=== PATIENT | male | born 1995 | race Caucasian/White ===

== ENCOUNTER 2022-01-27 10:45 | Emergency (ER) | payer OTHER ==
--- OUTSIDE RECORDS SUMMARY | 2022-01-27 10:49 | XMS REPORT | Continuity of Care Document ---
:1995 Author Organization [facility] t Address [address] [place] [address] Care Team Providers Name Role Phone KOSCIUK Attending Clinician Unavailable KOSCIUK Admitting Clinician Unavailable Problems Condition Condition Condition Status Onset Resolution Last Treating Co mments Source Name Details Category Date Date Treatment Clinician Date Chest pain Chest pain Problem [facility] (LUF/LI V/SA) Pain in Pain in Problem Active [facility] (LUF/LI V/SA) Allergies, Adverse Reactions, Alerts Allergy Allergy Status Severity Reaction(s) Onset Inactive Treating Comm ents Source Name Type Date Date Clinician No Known DA Active Unknown [facility] - Allergie 00:00: Memoria s 00 l (LUF/LI V/SA) Medications This patient has no known medications. Vital Signs Vital Name Observation Time Observation Value Comments Source Weight 2017-12-24 19:52:00 69.7 KG Respiratory Rate 2017-12-24 19:58:00 18 /min [facility] (LUF/CM/SA) O2% BldC Oximetry 2017-12-24 19:58:00 99 % [facility] BP Systolic 2017-12-24 19:58:00 129 mm[Hg] [facility] (LUF/CM/SA) BP Diastolic 2017-12-24 19:58:00 72 mm[Hg] [facility] Body Temperature 2017-12-24 19:58:[address] [facility] Weight Measured 2017-12-24 19:52:00 153.66 lbs [facility] ([facility]) Procedures This patient has no known procedures. Encounters Start End Encounter Admission Attending Care Care Encounter Source Date/Time Date/Time Type Type Clinicians Facility Department ID 2017-12-24 2017-12-24 RIGHT 1 MAXX [facility] [id number] 19:41:00 23:46:00 TESTICULAR SHELLY [place] Jason es - PAIN [place], [facility] [address] [facility] ([address], V/SA) [place] [id number] Results Test Description Test Time Test Comments Results Result Sour e Comments US SCROTUM 2017-12-25 ER 6 Procedure: US SCROTUM (TESTES) 07:24:53 (TESTES)CLINICAL HISTORY: Right-sided scrotal pain.Order Date: 12/24/2017 9:16 PMOrdering clinician: SHELLY LILLYCOMPARISON: None available.TECHNIQUE: Ultrasound images of the scrotum was performed with grimaldo-scale andcolor doppler.FINDINGS:The right testis is normal in size and morphology.The left testis is normal in size and morphology.There is no intratesticular abnormality. Testicular vascularity is symmetricand within normal limits.The epididymis is normal in appearance bilaterally.Small left-sided varicocele. No hydroceles.IMPRESSION :Small left-sided varicocele. Otherwise, unremarkable testicular ultrasound.This final report was electronically signed by Dr Castro Young MD 12/25/20177:18 AMDictated By: CASTRO YOUNGDate: 12/25/2017 07:24
[2022-01-27] MEDS ORDERED: IBUPROFEN 400 MG TAB ONE (11:14)
--- NOTE | 2022-01-27 11:52 | RAD REPORT ---
EXAM DESCRIPTION: RAD - Hand Right 3 View - 01/27/2022 11:40 am CLINICAL HISTORY: hand injury COMPARISON: No comparisons FINDINGS/IMPRESSION: Slightly angulated and minimally displaced fracture at the proximal fifth metac arpal. The fracture line extends to the articular surface. No other fractures are identified . Ulnar minus variance.
--- NOTE | 2022-01-27 13:07 | ER ---
Nurse's Notes [facility] Name: Damaso Sarabia Age: 26 yrs Sex: Male : 1995 Arrival Date: 01/27/2022 Time: 10:48 Bed 9 Private MD: Diagnosis: Fracture of the base of the metacarpal, right, initial visit, unspecified, closed, acute Presentation: 01/27 10:55 Chief complaint: Patient states: "Patient reports he was working on his truck the ag7 ratchet slip he punch the block one day ago". Coronavirus screen: Vaccine status: Patient reports being unvaccinated. Ebola Screen: No symptoms or risks identified at this time. Initial Sepsis Screen: Does the patient meet any 2 criteria? No. Patient's initial sepsis screen is negative. Does the patient have a suspected source of infection? No. Patient's initial sepsis screen is negative. Risk Assessment: Do you want to hurt yourself or someone else? Patient reports no desire to harm self or others. Onset of symptoms was January 26, 2022. 10:55 Method Of Arrival: Ambulatory [facility] 10:55 Acuity: JAMES 3 ag7 Triage Assessment: 11:07 Injury Description: Deformity sustained to right hand is SWOLLEN. ke1 Historical: - Allergies: 10:59 No Known Allergies; ag7 - Home Meds: 10:59 None [Active]; ag7 - PMHx: 10:59 None; ag7 - Immunization history:: Adult Immunizations up to date. - Social history:: Smoking status: Patient reports the use of cigarette tobacco products, smokes one-half pack cigarettes per day. Screenin:07 Abuse screen: Denies threats or abuse. Nutritional screening: No deficits noted. ke1 Tuberculosis screening: No symptoms or risk factors identified. Fall Risk No fall in past 12 months (0 pts). No secondary diagnosis (0 pts). No IV (0 pts). Ambulatory Aid- None/Bed Rest/Nurse Assist (0 pts). Gait- Normal/Bed Rest/Wheelchair (0 pts) Mental Status- Oriented to own ability (0 pts). Total Mehta Fall Scale indicates No Risk (0-24 pts). Assessment: 11:02 General: Appears in no apparent distress. Behavior is cooperative. Pain: Complains of ke1 pain in right hand Pain does not radiate. Pain currently is 2 out of 10 on a pain scale. at worst was 10 out of 10 on a pain scale. level that patient reports is acceptable is 2 out of 10 on a pain scale. Quality of pain is described as shooting, Aggravated by repositioning, Goal of pain control is to be pain free. Neuro: Level of Consciousness is awake, alert, Oriented to person, place, time, situation. Cardiovascular: Heart tones S1 S2 Capillary refill < 3 seconds Patient's skin is warm and dry. Respiratory: Airway is patent Breath sounds are clear bilaterally. GI: Abdomen is flat. : No deficits noted. Derm: No deficits noted. Musculoskeletal: Range of motion: limited in right wrist. 13:15 Reassessment: Patient appears in no apparent distress at this time. No changes from jd3 previously documented assessment. Patient and/or family updated on plan of care and expected duration. Pain level reassessed. Patient is alert, oriented x 3, equal unlabored respirations, skin warm/dry/pink. Vital Signs: 10:55 BP 120 / 69; Pulse 80; Resp 20; Temp 98.5; Pulse Ox 100% on R/A; Weight 68.04 kg; ag7 Height 6 ft. (182.88 cm); Pain 10/10; 13:15 Pulse 82; Resp 19 S; Pulse Ox 100% on R/A; jd3 10:55 Body Mass Index 20.34 (68.04 kg, 182.88 cm) ag7 ED Course: 10:48 Patient arrived in ED. jj6 10:50 David Henderson PA is PHCP. [facility] 10:50 Chandra Phillip MD is Attending Physician. [facility] 10:51 Syed Davey, YAMINI is Primary Nurse. ke1 10:59 Triage completed. ag7 11:00 Arm band placed on left wrist. ag7 11:08 Patient has correct armband on for positive identification. Bed in low position. Call ke1 light in reach. 11:40 Hand Right 3 View XRAY In Process Unspecified. EDMS 12:50 Orthoglass splint: Ulnar gutter/Boxer splint applied on right forearm. capillary refill dh3 <3 seconds, viewed by CARLOS Aiken. 13:05 Minh Brooks MD is Referral Physician. [facility] 13:05 Juan Carlos Childs MD is Referral Physician. [facility] 13:15 No provider procedures requiring assistance completed. Patient did not have IV access jd3 during this emergency room visit. Administered Medications: 11:13 Drug: Ibuprofen 800 mg Route: PO; ke1 12:00 Follow up: Response: No adverse reaction jd3 Outcome: 13:07 Discharge ordered by . jmm 13:15 Discharged to home ambulatory, with family. jd3 13:15 Condition: stable 13:15 Discharge instructions given to patient, Instructed on discharge instructions, follow up and referral plans. medication usage, Demonstrated understanding of instructions, follow-up care, medications, Prescriptions given X 1. 13:16 Patient left the ED. jd3 Signatures: Dispatcher [employer] EDMS David Henderson PA PA [facility] Enedelia Bolton 3 Kishore Cartwright RN RN jd3 Cheri Alexis jj6 Syed Davey RN RN ke1 Marguerite Carr RN RN ag7
--- NOTE | 2022-01-27 13:07 | EDPHYS ---
Physician Documentation [facility] Name: Damaso Sarabia Age: 26 yrs Sex: Male : 1995 Arrival Date: 01/27/2022 Time: 10:48 Bed 9 Private MD: ED Physician Chandra Phillip HPI: 01/27 11:08 This 26 yrs old Male presents to ER via Ambulatory with complaints of Hand Injury, Hand jmm Pain, Hand Swelling. 11:08 The patient or guardian reports injury, pain. Onset: The symptoms/episode jmm began/occurred acutely, 1 day(s) ago. Modifying factors: The symptoms are alleviated by nothing, the symptoms are aggravated by nothing. This is a 26-year-old male with no known chronic medical conditions of presents emergency department with complaints of right hand pain and swelling after injuring himself while working on a motor. Patient states that he was using a socket and slipped hitting an engine block. Unsure on tetanus immunization.. Historical: - Allergies: 10:59 No Known Allergies; ag7 - Home Meds: 10:59 None [Active]; ag7 - PMHx: 10:59 None; ag7 - Immunization history:: Adult Immunizations up to date. - Social history:: Smoking status: Patient reports the use of cigarette tobacco products, smokes one-half pack cigarettes per day. ROS: 11:08 Constitutional: Negative for fever, chills, and weight loss, Cardiovascular: Negative jmm for chest pain, palpitations, and edema, Respiratory: Negative for shortness of breath, cough, wheezing, and pleuritic chest pain. 11:08 MS/extremity: Positive for injury or acute deformity, pain. 11:08 All other systems are negative. Exam: 11:08 Constitutional: This is a well developed, well nourished patient who is awake, alert, jmm and in no acute distress. Head/Face: atraumatic. Eyes: EOMI, no conjunctival erythema appreciated ENT: Moist Mucus Membranes Neck: Trachea midline, Supple Chest/axilla: Normal chest wall appearance and motion. Cardiovascular: Regular rate and rhythm. No edema appreciated Respiratory: Normal respirations, no respiratory distress appreciated Abdomen/GI: Non distended, soft Back: Normal ROM 11:08 Musculoskeletal/extremity: Full range of motion appreciated to the right wrist, fourth and fifth metacarpophalangeal joints, less than 2-second distal capillary refill, swelling noted to the base of the fifth metacarpal region. No open wounds at the base.. 11:08 Skin: abrasion noted to the right hand. 11:08 Neuro: Orientation: is normal, Mentation: is normal, Memory: is normal. 11:08 Psych: Behavior/mood is pleasant, cooperative. Vital Signs: 10:55 BP 120 / 69; Pulse 80; Resp 20; Temp 98.5; Pulse Ox 100% on R/A; Weight 68.04 kg; ag7 Height 6 ft. (182.88 cm); Pain 10/10; 13:15 Pulse 82; Resp 19 S; Pulse Ox 100% on R/A; jd3 10:55 Body Mass Index 20.34 (68.04 kg, 182.88 cm) ag7 Procedures: 13:01 Splinting: Splint applied to right hand using applied by tech. Examined by me, post [facility] splint application: neurovascular intact, 2+ distal pulses palpable, brisk capillary refill noted, Patient tolerated well. MDM: 11:08 Patient medically screened. [facility] 13:01 Data reviewed: vital signs, nurses notes. Counseling: I had a detailed discussion with [facility] the patient and/or guardian regarding: the historical points, exam findings, and any diagnostic results supporting the discharge/admit diagnosis, radiology results, the need for outpatient follow up, to return to the emergency department if symptoms worsen or persist or if there are any questions or concerns that arise at home. ED course: Patient splinted. Advised to follow up with ortho for further evaluation Patient otherwise given strict return precautions. Patient understood and agrees with the plan of care. . 01/27 11:09 Order name: Hand Right 3 View XRAY; Complete Time: 12:20 [facility] 01/27 12:23 Order name: Ulnar Gutter splint; Complete Time: 12:52 [facility] Administered Medications: 11: Drug: Ibuprofen 800 mg Route: PO; ke1 12:00 Follow up: Response: No adverse reaction jd3 Disposition: 15:35 Co-signature as Attending Physician, hCandra Phillip MD I agree with the assessment and rn plan of care. Attestation: The patient's history, exam findings, diagnostics, and a summary of any interventions or procedures was reviewed in detail with David GONZALEZ. Disposition Summary: 01/27/22 13:07 Discharge Ordered Location: Home [facility] Condition: Stable [facility] Diagnosis - Fracture of the base of the metacarpal, right, initial visit, unspecified, closed, [facility] acute Followup: [facility] - With: Minh Brooks MD - When: 2 - 3 days - Reason: Recheck today's complaints, Continuance of care, Re-evaluation by your physician Followup: [facility] - With: Juan Carlos Childs MD - When: 2 - 3 days - Reason: Recheck today's complaints, Continuance of care, Re-evaluation by your physician Discharge Instructions: - Discharge Summary Sheet [facility] - Boxer's Fracture [facility] Forms: - Medication Reconciliation Form [facility] - Thank You Letter [facility] - Work release form [facility] - Antibiotic Education [facility] - Prescription Opioid Use [facility] Prescriptions: - Ultracet 37.5-325 mg Oral Tablet - take 1 tablet by ORAL route every 6 hours - for up to 5 days; do not exceed 8 jmm tablets per day.; 12 tablet; Refills: 0, Product Selection Permitted Signatures: Dispatcher [employer] EDMS David Henderson PA PA m Chandra Phillip MD MD rn Ebrottie, Kouassi RN RN ke1 Marguerite Carr RN RN ag7 Kishore Cartwright RN jd3
[2022-01-27 13:36] VITALS: BP 120/69; TEMP 98.5; O2SAT 100
== END 2022-01-27 13:16 | disposition home or self-care (01) ==
LOC: ER 10:45
PROC: 2W3CX1Z Immobilization of Right Lower Arm using Splint (ICD-10-PCS; principal; 2022-01-27)
DX: S62.316A Displaced fracture of base of fifth metacarpal bone, right hand, initial encounter for closed fracture (principal); W22.8XXA Striking against or struck by other objects, initial encounter; F17.210 Nicotine dependence, cigarettes, uncomplicated
CPT/HCPCS: 99284

== ENCOUNTER 2022-12-04 11:22 | Emergency (ER) | payer OTHER ==
--- OUTSIDE RECORDS SUMMARY | 2022-12-04 11:25 | XMS REPORT | Continuity of Care Document ---
:1995 Author Organization [facility] t Address [address] [place] [address] Care Team Providers Name Role Phone SHLELY LILLY Attending Clinician Unavailable SHELLY LILLY Admitting Clinician Unavailable Problems Condition Condition Condition Status Onset Resolution Last Treating Co mments Source Name Details Category Date Date Treatment Clinician Date Chest pain Chest pain Problem [facility] Memoria [facility] (LUF/LI V/SA) Pain in Pain in Problem Active [facility] 00:[facility]: Memoria 00 l (LUF/LI V/SA) Allergies, Adverse Reactions, Alerts Allergy Allergy Status Severity Reaction(s) Onset Inactive Treating Comm ents Source Name Type Date Date Clinician No Known DA Active Unknown [facility] Allergie 00:00: Memoria s 00 l (LUF/LI V/SA) Medications This patient has no known medications. Vital Signs Vital Name Observation Time Observation Value Comments Source Weight 2017-12-24 19:52:00 69.7 KG Body Temperature 2017-12-24 19:58:00 98.[address] [facility] (LUF/CM/SA) Respiratory Rate 2017-12-24 19:58:00 18 /min [facility] (LUF/CM/SA) O2% BldC Oximetry 2017-12-24 19:58:00 99 % [facility] (LUF/CM/SA) BP Systolic 2017-12-24 19:58:00 129 mm[Hg] [facility] (LUF/CM/SA) BP Diastolic 2017-12-24 19:58:00 72 mm[Hg] [facility] (LUF/CM/SA) Weight Measured 2017-12-24 19:52:00 153.66 lbs [facility] (LUF/CM/SA) Procedures This patient has no known procedures. Encounters Start End Encounter Admission Attending Care Care Encounter Source Date/Time Date/Time Type Type Clinicians Facility Department ID 2022-01-31 Outpatient [facility] [id number] Common 10:00:05 [facility] 2017-12-24 2017-12-24 RIGHT 1 MAXX [facility] [id number] [facility] 19:41:00 23:46:00 TESTICULAR SHELLY [place] Jason es [facility] [place] [address] [facility] ([address], V/SA) [facility] [place] [address] Results Test Description Test Time Test Comments Results Result Sourc e Comments US SCROTUM 2017-12-25 ER 6 Procedure: US [facility] (TESTES) 07:24:53 SCROTUM [place] (TESTES)CLINICAL HISTORY: Right-sided scrotal pain.Order Date: 12/24/2017 9:16 PMOrdering clinician: SHELLY LILLYCOMPARISON: None available.TECHNIQUE: Ultrasound images of the scrotum was performed with grimaldo-scale andcolor doppler.FINDINGS:The right testis is normal in size and morphology.The left testis is normal in size and morphology.There is no intratesticular abnormality. Testicular vascularity is symmetricand within normal limits.The epididymis is normal in appearance bilaterally.Small left-sided varicocele. No hydroceles.IMPRESSIO N:Small left-sided varicocele. Otherwise, unremarkable testicular ultrasound.This final report was electronically signed by Dr Castro Young MD 12/25/20177:18 AMDictated By: CASTRO YOUNGDate: 12/25/2017 07:24
[2022-12-04 11:38] LABS: Urine Blood Negative (Negative); Urine Glucose Negative (Negative); Urine Protein Negative (Negative); Urine Specific Gravity 1.015 (1.005-1.030); Urine pH 7.5 (5.0-7.0)
[2022-12-04 11:49] LABS: Urine Bacteria <20 /HPF (<20); Urine Mucus Slight /HPF (None Seen); Urine RBC <5 /HPF (None Seen)
--- NOTE | 2022-12-04 12:32 | RAD REPORT ---
EXAM DESCRIPTION: CT - Stone Protocol - 12/04/2022 12:09 pm CLINICAL HISTORY: Flank pain/dysuria COMPARISON: None. TECHNIQUE: Computed axial tomography of the abdomen pelvis was obtained without oral or IV contrast. Lack of IV and oral contrast limits evaluation of solid organs, appendix, bowel, and vessels. Norman l reformatted images were obtained and reviewed. All CT scans are performed using dose optimization technique as appropriate and may include automated exposure control or mA/KV adjustment according to patient size. FINDINGS: Multiple, tiny bilateral renal calculi. A ureteral calculus is not seen. No bladder calcul us noted. Bilateral extrarenal pelves The liver, spleen, pancreas and adrenals appear grossly normal There is no evidence of diverticulitis. Moderate amount stool within the colon. Trace amount of free fluid IMPRESSION: Multiple, tiny nonobstructing bilateral renal calculi
--- NOTE | 2022-12-04 13:00 | EDPHYS ---
Physician Documentation [facility] Name: Damaso Sarabia Age: 26 yrs Sex: Male : 1995 Arrival Date: 12/04/2022 Time: 11:25 Bed 12 Private MD: ED Physician Danny Lion HPI: 12/04 15:21 This 26 yrs old Male presents to ER via Ambulatory with complaints of Urinary Problem. kb 15:21 The patient presents with urinary symptoms, dysuria. Onset: The symptoms/episode kb began/occurred yesterday. Modifying factors: The symptoms are alleviated by nothing, the symptoms are aggravated by urinating. Associated signs and symptoms: Pertinent positives: dysuria, Pertinent negatives: abdominal pain, constipation, diarrhea, fever, hematuria, nausea, vomiting. Severity of symptoms: At their worst the symptoms were mild, moderate, in the emergency department the symptoms are unchanged. The patient has not experienced similar symptoms in the past. The patient has not recently seen a physician. Pt reports dysuria that started yesterday. . Historical: - Allergies: 11:25 [place]; ll1 - PMHx: 11:25 None; ll1 - PSHx: 11:25 facial plastic SX; ll1 - Immunization history:: Client reports having NOT received the Covid vaccine. - Social history:: Smoking status: Patient reports the use of cigarette tobacco products, smokes one pack cigarettes per day. ROS: 15:19 Constitutional: Negative for fever, chills, and weight loss. kb 15:19 : Positive for flank pain, burning with urination. 15:19 All other systems are negative. Exam: 15:19 Constitutional: This is a well developed, well nourished patient who is awake, alert, kb and in no acute distress. Head/Face: Normocephalic, atraumatic. ENT: Moist Mucous membranes Cardiovascular: Regular rate and rhythm with a normal S1 and S2. No gallops, murmurs, or rubs. No pulse deficits. Respiratory: Respirations even and unlabored. No increased work of breathing. Talking in full sentences Abdomen/GI: Soft, non-tender. No distention Back: No spinal tenderness. No costovertebral tenderness. Full range of motion. Skin: Warm, dry with normal turgor. Normal color. MS/ Extremity: Pulses equal, no cyanosis. Neurovascular intact. Full, normal range of motion. Neuro: Awake and alert, GCS 15, oriented to person, place, time, and situation. Moves all extremities. Normal gait. Psych: Awake, alert, with orientation to person, place and time. Behavior, mood, and affect are within normal limits. Vital Signs: 11:27 BP 147 / 90; Pulse 89; Resp 16; Temp 98.2; Pulse Ox 100% ; Weight 71.67 kg; Height 6 ll1 ft. 0 in. (182.88 cm); Pain 0/10; 11:27 Body Mass Index 21.43 (71.67 kg, 182.88 cm) ll1 MDM: 11:30 Patient medically screened. 12:33 Differential diagnosis: bacterial infection, UTI. Data reviewed: vital signs, nurses kb notes. I considered the following discharge prescriptions or medication management in the emergency department Antibiotics: At this time antibiotics are not recommended. Test considered but Not performed: Labs: CBC and BMP considered, but pt has no CVA tenderness and urine shows no infection. 15:18 I considered the following discharge prescriptions or medication management in the emergency department Considered antibiotic for possible STD, but pt is adamant that he only has one partner and the dysuria could not be from a STD. Pt will follow up with urology and/or STD clinic if symptoms persist. . Counseling: I had a detailed discussion with the patient and/or guardian regarding: the historical points, exam findings, and any diagnostic results supporting the discharge/admit diagnosis, lab results, radiology results, the need for outpatient follow up, a family practitioner, to return to the emergency department if symptoms worsen or persist or if there are any questions or concerns that arise at home. 12/04 11:31 Order name: Urine Microscopic Only; Complete Time: 11:49 kb 12/04 11:38 Order name: Urine Dipstick-Ancillary; Complete Time: 11:39 EDMS 12/04 11:31 Order name: Urine Dipstick-Ancillary (obtain specimen); Complete Time: 11:37 kb 12/04 11:47 Order name: CT Stone Protocol; Complete Time: 12:33 kb Administered Medications: No medications were administered Disposition Summary: 12/04/22 13:00 Discharge Ordered Location: Home Condition: Stable Diagnosis - Dysuria kb Followup: kb - With: Emergency Department - When: As needed - Reason: Worsening of condition Followup: kb - With: Private Physician - When: 2 - 3 days - Reason: Recheck today's complaints, Continuance of care, Re-evaluation by your physician Discharge Instructions: - Discharge Summary Sheet kb - Dysuria kb Forms: - Medication Reconciliation Form kb - Thank You Letter kb - Antibiotic Education kb - Prescription Opioid Use kb Signatures: Dispatcher [employer] Barb Barker, TAL-C TAL-Ellen Headley RN RN ll1
--- NOTE | 2022-12-04 13:00 | ER ---
Nurse's Notes [facility] Name: Damaso Sarabia Age: 26 yrs Sex: Male : 1995 Arrival Date: 12/04/2022 Time: 11:25 Bed 12 Private MD: Diagnosis: Dysuria Presentation: 12/04 11:27 Chief complaint: Patient states: Dysuria since yesterday. No fever. Coronavirus screen: 1 Vaccine status: Patient reports being unvaccinated. Client denies travel out of the [place] in the last 14 days. At this time, the client does not indicate any symptoms associated with coronavirus-19. Ebola Screen: Patient denies travel to an Ebola-affected area in the 21 days before illness onset. Initial Sepsis Screen: Does the patient meet any 2 criteria? No. Patient's initial sepsis screen is negative. Does the patient have a suspected source of infection? Yes: Dysuria/Frequency/Urgency/UTI. Risk Assessment: Do you want to hurt yourself or someone else? Patient reports no desire to harm self or others. Onset of symptoms was December 03, 2022. 11:27 Method Of Arrival: Ambulatory 1 11:27 Acuity: JAMES 4 ll1 Triage Assessment: 13:15 General: Appears in no apparent distress. Behavior is calm, cooperative, appropriate eh3 for age. Pain: Complains of pain in pelvis. Historical: - Allergies: 11:25 [place]; ll1 - PMHx: 11:25 None; ll1 - PSHx: 11:25 facial plastic SX; ll1 - Immunization history:: Client reports having NOT received the Covid vaccine. - Social history:: Smoking status: Patient reports the use of cigarette tobacco products, smokes one pack cigarettes per day. Screenin:14 [facility] ED Fall Risk Assessment (Adult) History of falling in the last 3 months, eh3 including since admission No falls in past 3 months (0 pts). Abuse screen: Denies threats or abuse. Denies injuries from another. Nutritional screening: No deficits noted. Tuberculosis screening: No symptoms or risk factors identified. Vital Signs: 11:27 BP 147 / 90; Pulse 89; Resp 16; Temp 98.2; Pulse Ox 100% ; Weight 71.67 kg; Height 6 ll1 ft. 0 in. (182.88 cm); Pain 0/10; 11:27 Body Mass Index 21.43 (71.67 kg, 182.88 cm) ll1 ED Course: 11:25 Patient arrived in ED. mr 11:28 Triage completed. ll1 11:28 Arm band placed on Patient placed in an exam room, on a stretcher. ll1 11:30 [facility]C [facility] kb 11:30 Danny Lion MD is Attending Physician. kb 11:37 Urine Microscopic Only Sent. ll1 12:10 CT Stone Protocol In Process Unspecified. EDMS 12:21 Anita Suggs, RN is Primary Nurse. eh3 13:14 Patient has correct armband on for positive identification. eh3 13:14 No provider procedures requiring assistance completed. Patient did not have IV access eh3 during this emergency room visit. Administered Medications: No medications were administered Medication: 13:15 VIS not applicable for this client. eh3 Outcome: 13:00 Discharge ordered by MD. kb 13:14 Discharged to home ambulatory. eh3 13:14 Condition: stable 13:14 Discharge instructions given to patient, Instructed on discharge instructions, follow up and referral plans. Demonstrated understanding of instructions, follow-up care. 13:15 Patient left the ED. eh3 Signatures: Dispatcher [employer] EDNJ Barb Gifford FNP-C FNP-Ckb Leonora JohnsonEllen, RN RN 1 Anita Suggs, RN RN eh3
[2022-12-04 13:26] VITALS: BP 147/90; TEMP 98.2; O2SAT 100
== END 2022-12-04 13:15 | disposition home or self-care (01) ==
LOC: ER 11:22
DX: R30.0 Dysuria (principal); R10.9 Unspecified abdominal pain; F17.210 Nicotine dependence, cigarettes, uncomplicated; Z91.018 Allergy to other foods
CPT/HCPCS: 74176; 76377; 81003; 81015; 99283